=== PATIENT | female | born 1960 | race Two or more races ===

== ENCOUNTER 2018-10-07 09:19 | Emergency (ER) | payer SELFPAY ==
[~2018-10-07] VITALS: Ht 160 cm; Wt 42.9 kg
--- NOTE | 2018-10-07 09:52 | NUR ---
Patient discharged to home in stable condition. Written and verbal after care instructions given. Patient verbalizes understanding of instruction.
[2018-10-07 09:56] VITALS: BP 122/65
== END 2018-10-07 09:50 | disposition home or self-care (01) ==
LOC: ER 09:19
DX: Z00.00 Encounter for general adult medical examination without abnormal findings (principal); F10.10 Alcohol abuse, uncomplicated; F17.200 Nicotine dependence, unspecified, uncomplicated; Y90.9 Presence of alcohol in blood, level not specified; Z59.0 Homelessness
CPT/HCPCS: Z7502

== ENCOUNTER 2018-10-27 09:43 | Emergency (ER) | payer SELFPAY ==
[~2018-10-27] VITALS: Ht 152.4 cm; Wt 44.5 kg
[2018-10-27 09:43] VITALS: BP 164/85
[2018-10-27] MEDS ORDERED: IBUPROFEN 600 MG TABLET PO ONE ×2 (10:07→10:30)
== END 2018-10-27 10:31 | disposition home or self-care (01) ==
LOC: ER 09:43
DX: R60.0 Localized edema (principal); B35.3 Tinea pedis; F17.200 Nicotine dependence, unspecified, uncomplicated
CPT/HCPCS: 73600-TC

== ENCOUNTER 2019-07-08 11:54 | Inpatient (IN) | payer SELFPAY ==
[~2019-07-08] VITALS: Ht 162.6 cm; Wt 51.3 kg
--- NOTE | 2019-07-08 12:08 | NUR ---
BIIB RA C/O COUGH, CONGESTION, FEVER AND CHILLS, pt alert, awake, placed on monitor, pending er provider eval
--- NOTE | 2019-07-08 12:20 | NUR ---
LINE STARTED ON R FA G 18, BLOOD DRAWN FROM LINE AND SENT TO LAB
[2019-07-08] MEDS ORDERED: CEFTRIAXONE 1GM BAG (ER ONLY) 50 ML IV ONE ×2 (12:30→13:21)
[2019-07-08] MEDS ORDERED: AZITHROMYCIN 500 MG in IV D5W 250 ML IV ONE (12:30)
[2019-07-08] MEDS ORDERED: ALBUTEROL SULFATE INH 18 GM HFA.AER.AD IH PRN (12:30)
--- NOTE | 2019-07-08 12:30 | NUR ---
pt moved to room 6
[2019-07-08 12:53] LABS: BASOPHILS # (AUTO) 0.1 /CMM (0.0-0.2)
--- NOTE | 2019-07-08 12:55 | NUR ---
underwood swab sent to lab
[2019-07-08 12:56] LABS: BASOPHILS % (AUTO) 0.6 % (0.0-2.0); EOSINOPHILS % (AUTO) 0.4 % (0.0-6.0); HEMATOCRIT 43 % (33-45); HEMOGLOBIN 13.4 g/dL (11.5-14.8); LYMPHOCYTES % (AUTO) 4.7 % (20.0-44.0); MEAN CORPUSCULAR HGB CONC 32 g/dl (31.0-36.0); MEAN CORPUSCULAR VOLUME 103 fL (82-100); MONOCYTES % (AUTO) 0.2 % (2.0-12.0); NEUTROPHILS # (AUTO) 19.3 /CMM (1.8-8.9); NEUTROPHILS % (AUTO) 94.1 % (43.0-81.0); PLATELET COUNT (AUTO) 130 /CMM (150-450); RED BLOOD CELL COUNT(AUTO) 4.11 MIL/uL (4.0-5.2); WHITE BLOOD COUNT (AUTO) 20.5 K/uL (4.3-11.0)
--- NOTE | 2019-07-08 13:10 | NUR ---
CALLED [facility], PAGED MARYANNE
[2019-07-08 13:16] LABS: BILIRUBIN,DIRECT 2.6 mg/dL (0.0-0.2)
[2019-07-08 13:17] LABS: ALBUMIN 1.9 g/dL (3.4-5.0); TOTAL PROTEIN, SERUM 6.3 g/dL (6.4-8.2)
[2019-07-08 13:22] LABS: POTASSIUM 3.7 mmol/L (3.5-5.1)
[2019-07-08 13:23] LABS: CALCIUM, SERUM 7.5 mg/dL (8.5-10.1); CREATININE 2.9 mg/dL (0.6-1.3)
[2019-07-08] MEDS ORDERED: DEXTROSE 50%-WATER 50 ML DISP.SYRIN ONE (13:43)
--- NOTE | 2019-07-08 13:45 | NUR ---
pt hypoglycemic; given d50 and food tray at this time
--- NOTE | 2019-07-08 13:46 | NUR ---
CALLED NURSING SUP FOR BED
[2019-07-08] MEDS ORDERED: DEXTROSE 50%-WATER 50 ML DISP.SYRIN IV ONE (14:00)
--- NOTE | 2019-07-08 14:30 | NUR ---
report given to niko macdonald for juana
--- NOTE | 2019-07-08 15:00 | NUR ---
pt transported to 1st floor
--- NOTE | 2019-07-08 15:15 | NUR ---
SOLIDWORKS DESIGNER NOTES PATIENT RECEIVED AWAKE IN BED, NO RESPIRATORY DISTRESS AT THIS TIME, PATIENT COUGHING AT TIMES. PATIENT WITH NO C/O PAIN AT THIS TIME. SKIN WARM TO TOUCH, IV ACCESS SITES INTACT AND PATENT. SKIN ASSESSED AND TAKEN PHOTOS, NO SKIN BREAKDOWN. BELONGINGS ACCOUNTED FOR AND BELONGINGS LIST SIGNED. PATIENT'S NEEDS ATTENDED, BED ON LOWEST LOCKED POSITION, CALL LIGHT WITHIN REACH. ADMISSION ORDERS CARRIED OUT. SAFETY PRECAUTIONS IN PLACE. WILL CONTINUE TO MONITOR.
[2019-07-08] MEDS ORDERED: IV NS 0.9% 1,000 ML IV PRN ×2 (15:30→23:30)
[2019-07-08] MEDS ORDERED: HYDROCODONE/APAP 5/325MG 1 EACH TABLET PO PRN (16:00)
[2019-07-08] MEDS ORDERED: ACETAMINOPHEN 325 MG TABLET PO PRN (16:00)
[2019-07-08] MEDS ORDERED: MAG HYDROX/AL HYDROX/SIMETH 30 ML UDC PO PRN (16:00)
[2019-07-08] MEDS ORDERED: ZOLPIDEM TARTRATE 5 MG TABLET PO PRN (16:00)
[2019-07-08] MEDS ORDERED: Z GUARD REMEDY 2 OZ OINT TP PRN (16:00)
[2019-07-08] MEDS ORDERED: ONDANSETRON HCL/PF 4 MG/2 ML VIAL IVP PRN (16:00)
[2019-07-08] MEDS ORDERED: MAGNESIUM HYDROXIDE 30 ML UDC PO PRN (16:00)
[2019-07-08 17:02] LABS: ABG BASE EXCESS -23.7 mmol/L; ABG OXYGEN SATURATION 94.2 % (92.0-98.5); ABG PCO2 22.3 mmHg (35.0-45.0); ABG PH 7.024 (7.350-7.450); ABG PO2 106.3 mmHg (75.0-100.0); AaDO2 16.7 mmHg; COHb 0.4 % (0.5-1.5); MetHb 0.5 % (0.0-1.5); O2Hb 93.4 % (94.0-97.0); SITE, ABG Right Brachial; VENT MODE, BG ROOM AIR/ DISCONNECTED
[2019-07-08] MEDS ORDERED: SODIUM BICARBONATE SYR 50 MEQ/50 ML DISP.SYRIN IV ONE (17:30)
[2019-07-08] MEDS: BLOOD SUGAR DIAGNOSTIC 1 EACH STRIP IN SCH ×2 (17:31→22:26)
[2019-07-08 17:46] LABS: FERRITIN 597 ng/mL (8-388)
[2019-07-08] MEDS ORDERED: FEE PK DOSING 1 MIN EA MC ONE (17:52)
[2019-07-08] MEDS ORDERED: VANCOMYCIN 1 GM in IV D5W 250ml IV ONE (18:00)
--- NOTE | 2019-07-08 18:00 | NUR ---
HEALTH AND WELLNESS COORDINATOR NOTES TRANSFERRED PATIENT TO ICU, PATIENT WITH CHANGE OF CONDITION, PATIENT HAVING SOB, ON O2 4L VIA NASAL CANULA, PATIENT WITH NO C/O PAIN AT THIS TIME. ABG'S DONE AND RESULT GIVEN TO MD WITH NEW ORDERS, ORDERS CARRIED OUT, CHARGE NURSE IS AWARE AND INFORMED. REPORT GIVEN TO ELGIN FERNANDEZ.
[2019-07-08] MEDS ORDERED: SODIUM BICARBONATE SYR 50 MEQ/50 ML DISP.SYRIN ONE (18:08)
[2019-07-08 19:00] VITALS: BP 107/68
[2019-07-08 19:21] LABS: CALCIUM, SERUM 6.6 mg/dL (8.5-10.1); CREATININE 2.9 mg/dL (0.6-1.3); POTASSIUM 3.8 mmol/L (3.5-5.1)
[2019-07-08 20:00] VITALS: BP_SYST 127; BP_SYST 131; BP_DIAS 52; BP_DIAS 68
--- NOTE | 2019-07-08 20:19 | NUR ---
RN NOTE RECEIVED ALERT FOR CRITICAL LAB VALUE LACTIC ACID 17.4. PAGED DR. THORNTON.
[2019-07-08] MEDS: ENOXAPARIN SODIUM 30 MG/0.3 ML DISP.SYRIN SQ SCH (20:25)
--- NOTE | 2019-07-08 20:25 | NUR ---
RN NOTE DR. OCAMPO CALLED BACK. PT ALREADY HAD 1L BOLUS IV GIVEN BY PREVIOUS SHIFT. MD STATES TO GIVE ADDITIONAL 250ML OF NSS AND GIVE OTHER IV MEDICATIONS ORDERED. MD STATES TO RECHECK STAT LACTIC ACID LEVEL IN 3 HOURS. MD ALSO STATES HOLD LOVENOX DUE TO ELEVATED PT, INR AND APTT. ORDERS NOTED AND CARRIED OUT.
[2019-07-08] MEDS: Sodium Bicarbonate 150 MEQ in IV D5W 1,000 ML IV PRN (20:35)
[2019-07-08] MEDS: IV NS 0.9% 1,000 ML IV PRN (20:43)
[2019-07-08 21:00] VITALS: BP 116/78
[2019-07-08] MEDS ORDERED: IV NS 0.9% 250 ML IV PRN (21:00)
[2019-07-08 21:11] LABS: ABG BASE EXCESS -15.4 mmol/L; ABG OXYGEN SATURATION 93.3 % (92.0-98.5); ABG PCO2 25.7 mmHg (35.0-45.0); ABG PH 7.229 (7.350-7.450); ABG PO2 87.5 mmHg (75.0-100.0); AaDO2 31.5 mmHg; COHb 0.2 % (0.5-1.5); MetHb 0.6 % (0.0-1.5); O2Hb 92.6 % (94.0-97.0); SITE, ABG Left Brachial; VENT MODE, BG RA
--- NOTE | 2019-07-08 21:12 | NUR ---
ABG DONE. NOTIFIED EMBROIDERY SUPERVISOR WITH THE RESULT.
--- NOTE | 2019-07-08 21:15 | NUR ---
RN NOTE ABG RESULTED AND RELAYED TO DR. OCAMPO WITH NO NEW ORDERS.
[2019-07-08 22:00] VITALS: BP 91/58
[2019-07-08] MEDS: PIPERACILLIN /TAZOBACTAM 2.25 G in IV D5W 50 ML IV SCH (22:14)
[2019-07-08 23:00] VITALS: BP 101/31
--- NOTE | 2019-07-08 23:10 | NUR ---
RN NOTE RECEIVED ALERT FOR CRITICAL LAB VALUE LACTIC ACID 15.2. TRENDING DOWNWARD. NOTIFIED MERON MARTINEZ.
[2019-07-09] VITALS (34 sets, daily range): BP systolic 73–131; BP diastolic 33–65
--- NOTE | 2019-07-09 | NUR ---
RN NOTE PT NOTED WITH LIQUID BOWEL MOVEMENT. PT ALERT AND ORIENTED X 3 AND STRONGLY REFUSED TO BE CLEANED DESPITE EXPLANATION OF RISKS AND BENEFITS. PT EXCLAIMED "PLEASE! JUST LET ME SLEEP!" WILL OFFER TO BE CLEANED AGAIN.
[2019-07-09] MEDS ORDERED: LORAZEPAM INJ 2 MG/ML VIAL IV PRN (00:06)
[2019-07-09 01:06] LABS: CREATININE 1.8 mg/dL (0.6-1.3); TOTAL PROTEIN, SERUM 3.5 g/dL (6.4-8.2)
[2019-07-09 01:09] LABS: POTASSIUM 2.8 mmol/L (3.5-5.1)
[2019-07-09 01:12] LABS: ALBUMIN 0.9 g/dL (3.4-5.0); CALCIUM, SERUM 4.7 mg/dL (8.5-10.1)
[2019-07-09] MEDS: PIPERACILLIN /TAZOBACTAM 2.25 G in IV D5W 50 ML IV SCH ×3 (01:19→17:07)
[2019-07-09] MEDS: BLOOD SUGAR DIAGNOSTIC 1 EACH STRIP IN SCH ×6 (01:20→21:36)
--- NOTE | 2019-07-09 01:50 | NUR ---
RN NOTE RECEIVED ALERT FOR CRITICAL LAB VALUES: ALBUMIN 0.9, CALCIUM 4.7, POTASSIUM 2.8, AND TROPONIN 0.075. PAGED MERON OCAMPO NP.
[2019-07-09 02:31] LABS: APPEARANCE,URINE SL CLOUDY (CLEAR); BILIRUBIN,URINE MODERATE (NEGATIVE); BLOOD, URINE SMALL Ery/uL (NEGATIVE); COLOR,URINE DARK YELLO (YELLOW); KETONES,URINE NEGATIVE (NEGATIVE); LEUKOCYTE ESTERASE ,URINE NEGATIVE (NEGATIVE); NITRITE, URINE POSITIVE (NEGATIVE); PH,URINE 5.5 (5.0-8.0); PROTEIN,URINE TRACE mg/dl (NEGATIVE); UGLUCOSE NEGATIVE (NEGATIVE)
[2019-07-09 02:35] LABS: BACTERIA,URINE Moderate /HPF (None Seen); RBC,URINE 0-2 /HPF (0-2)
[2019-07-09 02:36] LABS: SQUAMOUS EPITHELIAL CELL,UR Few /HPF (None Seen)
--- NOTE | 2019-07-09 03:19 | NUR ---
RN NOTE MERON OCAMPO CHEMISTRY LECTURER CALLED BACK WITH ORDER TO ADMINISTER KCL 20MEQ IV. ORDER NOTED AND CARRIED OUT. NO NEW ORDERS GIVEN FOR ALBUMIN, CALCIUM AND TROPONIN LEVELS.
--- NOTE | 2019-07-09 03:24 | NUR ---
RN NOTE RECEIVED ALERT FOR CRITICAL LAB: PRELIMINARY BLOOD CULTURE SHOWS GRAM POSITIVE COCCI IN CHAINS. PT IS ALREADY ON VANCOMYCIN AND ZOSYN IV. DR. MARTINEZ MADE AWARE WITH NO NEW ORDERS.
[2019-07-09] MEDS: POTASSIUM CL. PREMIX PERIPHER. 50 ML IV SCH ×2 (03:29→04:30)
[2019-07-09] MEDS: Sodium Bicarbonate 150 MEQ in IV D5W 1,000 ML IV PRN ×3 (04:30→21:23)
[2019-07-09 04:44] LABS: BASOPHILS % (AUTO) 0.2 % (0.0-2.0); EOSINOPHILS % (AUTO) 0.2 % (0.0-6.0); HEMATOCRIT 34 % (33-45); HEMOGLOBIN 11.1 g/dL (11.5-14.8); LYMPHOCYTES # (AUTO) 0.7 /CMM (0.8-4.8); LYMPHOCYTES % (AUTO) 3.6 % (20.0-44.0); MEAN CORPUSCULAR HGB CONC 32 g/dl (31.0-36.0); MEAN CORPUSCULAR VOLUME 102 fL (82-100); MONOCYTES % (AUTO) 0.2 % (2.0-12.0); NEUTROPHILS # (AUTO) 17.9 /CMM (1.8-8.9); NEUTROPHILS % (AUTO) 95.8 % (43.0-81.0); PLATELET COUNT (AUTO) 86 /CMM (150-450); RED BLOOD CELL COUNT(AUTO) 3.36 MIL/uL (4.0-5.2); WHITE BLOOD COUNT (AUTO) 18.7 K/uL (4.3-11.0)
[2019-07-09 04:48] LABS: ALANINE AMINOTRANSFERASE 23 U/L (12-78); ALKALINE PHOSPHATASE 128 U/L (46-116); ASPARTATE AMINOTRANSFERASE 98 U/L (15-37); BILIRUBIN,TOTAL 2.7 mg/dL (0.2-1.0); CARBON DIOXIDE 17 mmol/L (21-32); CHLORIDE 103 mmol/L (98-107); CREATININE 1.9 mg/dL (0.6-1.3); GLUCOSE 115 mg/dL (74-106); PHOSPHORUS 6.3 mg/dL (2.5-4.9); POTASSIUM 3.3 mmol/L (3.5-5.1); SODIUM SERUM 140 mmol/L (136-145); TOTAL PROTEIN, SERUM 4.5 g/dL (6.4-8.2); UREA NITROGEN, BLOOD 58 mg/dL (7-18)
[2019-07-09 04:55] LABS: LDL 23 mg/dL (0-99); TRIGLYCERIDES 83 mg/dL (30-150)
[2019-07-09 04:58] LABS: ALBUMIN 1.2 g/dL (3.4-5.0); CALCIUM, SERUM 5.7 mg/dL (8.5-10.1)
--- NOTE | 2019-07-09 05:17 | NUR ---
RN NOTE RECEIVED ALERTS FOR CRITICAL LAB VALUES. CA 5.7, ALBUMIN 1.2, LACTIC ACID 13.8. ALL TRENDING IN EXPECTED DIRECTIONS. DR. OCAMPO NOTIFIED WITH NO NEW ORDERS.
[2019-07-09 05:29] LABS: BAND % (MANUAL) 25 % (0.0-5.0); LYMPHOCYTES % (MANUAL) 3 % (16-48); NEUTROPHILS % (MANUAL) 72 (42-76)
[2019-07-09 05:35] LABS: HDL CHOLESTEROL < 10 mg/dL (40-60)
--- NOTE | 2019-07-09 05:35 | NUR ---
RN NOTE DR. RASHEED CALLED UNIT AND WAS MADE AWARE OF LATEST ABG RESULT. ALSO NOTIFIED MD THAT PT IS ON 15L NON-REBREATHER AND SATURATING BETWEEN 88% AND 94% WITH SHORTNESS OF BREATH. DR. RASHEED ORDERED CHEST X-RAY AND REPEAT ABG IN AM. ORDER NOTED AND CARRIED OUT.
[2019-07-09 05:36] LABS: CHOLESTEROL < 50 mg/dL (<200)
--- NOTE | 2019-07-09 06:00 | NUR ---
RN NOTE NOTED TO HAVE PRODUCTIVE COUGH AND COARSE CRACKLES THROUGHOUT. IVF HELD PER . KAT MTZ RUNNING ORDERE.
--- NOTE | 2019-07-09 06:55 | NUR ---
RN NOTE PT NOTED TO BE REPEATEDLY REMOVING NON REBREATHER MASK WHICH CAUSES HER O2 SATURATION TO DROP TO 85-90% DESPITE PT REORIENTATION AND TEACHINGS. PAGED DR. OCAMPO FOR RESTRAINT ORDER.
--- NOTE | 2019-07-09 07:00 | NUR ---
PRODUCTION DIRECTOR OPENING A/O X1 , PATIENT IS AWAKE AND MOVING AROUND AND BED. PATIENT IS NOT COOPERATIVE WITH COMMANDS. ON 15L NON REBREATHER, ATTEMPTS TO TAKE OFF MASK. PATIENT ON EXTERNAL HEART MONITOR SR/ST . RAMIREZ PATENT AND INTACT. THANIA PICC LINE AND LEFTFORARM 20# NA BICARB 150 ML/HR ,PATIENT HAS BILATERAL RESTRAINTS PER PM SHIFT DOCTOR NOTIFIED . BED LOCKED AND LOWEST POSITION CALL LIGHT WITH IN REACH ALL SAFETY MEASURE IMPLEMENTED PER HOSPITAL POLICY
[2019-07-09] MEDS ORDERED: POTASSIUM CHLORIDE 10 MEQ TABLET.SA PO ONE (08:00)
--- NOTE | 2019-07-09 08:00 | NUR ---
DESIGN STUDIO CONSULTANT - DR. LARA SAW PATIENT
[2019-07-09 08:41] LABS: ABG BASE EXCESS -13.5 mmol/L; ABG OXYGEN SATURATION 83.5 % (92.0-98.5); ABG PCO2 43.3 mmHg (35.0-45.0); ABG PH 7.153 (7.350-7.450); ABG PO2 65.6 mmHg (75.0-100.0); AaDO2 459.3 mmHg; COHb 0.6 % (0.5-1.5); MetHb 0.5 % (0.0-1.5); O2Hb 82.6 % (94.0-97.0); SITE, ABG Left Radial; VENT MODE, BG NRB
[2019-07-09] MEDS ORDERED: HYDROXYCHLOROQUINE 200 MG TABLET PO SCH ×2 (09:00)
[2019-07-09] MEDS: PROPOFOL 100 ML IV PRN (10:00)
--- NOTE | 2019-07-09 10:11 | NUR ---
RT NOTE PT INTUBATED PER MD ORDER. 7.0 ETT 22 CM AT LIP. AC 16 450 +5 100%. ETT SECURE. CUFF INFLATED. ALARMS SET PER PROTOCOL AND AUDIBLE. VENT PLUGGED IN TO RED OUTLET. AMBU BAG AT BED SIDE. NO DI9
--- NOTE | 2019-07-09 10:13 | NUR ---
RT NOTE PT INTUBATED PER MD ORDER. 7.0 ETT 22 CM @ LIP. AC 16 450 100% +5. CUFF INFLATED. ETT SECURE. ALARMS SET PER PROTOCOL AND AUDIBLE. VENT PLUGGED IN TO RED OUTLET. AMBU BAG AT BED SIDE. NO DISTRESS NOTED AT MOMENT. Addendum: 07/09/19 at 1015 by ATTILA CLARK RT Amended: Links added.
[2019-07-09] MEDS: IV NS 0.9% 1,000 ML IV PRN (10:52)
[2019-07-09] MEDS ORDERED: POTASSIUM CHLORIDE 20 MEQ POWDER PACKET PO ONE (11:00)
[2019-07-09 12:05] LABS: ABG BASE EXCESS -14.4 mmol/L; ABG OXYGEN SATURATION 92.8 % (92.0-98.5); ABG PCO2 36.1 mmHg (35.0-45.0); ABG PH 7.177 (7.350-7.450); ABG PO2 84.3 mmHg (75.0-100.0); AaDO2 592.6 mmHg; COHb 0.3 % (0.5-1.5); MetHb 0.5 % (0.0-1.5); O2Hb 92.1 % (94.0-97.0); SITE, ABG Right Radial; VENT MODE, BG AC 16 450 100% +5
[2019-07-09] MEDS: VANCOMYCIN 500 MG in IV D5W 100 ML IV SCH (12:13)
[2019-07-09] MEDS ORDERED: ETOMIDATE 2 MG/ML VIAL IV ONE (17:12)
--- NOTE | 2019-07-09 18:00 | NUR ---
POKER PROP PLAYER - EMESIS WHILE CHANGING AND BED BATH . PATIENT STARTED EMESIS ABOUT 20 ML DARK BROWN LIQUID. SPECIMEN SENT TO LAB CHARGE NURSE NOTIFIED .
[2019-07-09] MEDS: AZITHROMYCIN 250 MG TABLET PO SCH (18:09)
[2019-07-09] MEDS: HYDROXYCHLOROQUINE 200 MG TABLET PO SCH (18:50)
--- NOTE | 2019-07-09 19:00 | NUR ---
TITLE COORDINATOR PATIENT IN STABLE CONDITION AT THIS TIME, NO SOB, NO ACUTE DISTRESS NOTED AT THIS TIME. BED LOCKED AT LOWEST POSITION CALL LIGHT WITH IN REACH ALL SAFETY MEASURE IMPLEMENTED PER HOSPITAL POLICY. WILL ENDORSE TO ON COMING SHIFT Addendum: 07/09/19 at 1925 by YOSI HOPE RN TITLE COORDINATOR PATIENT IN STABLE CONDITION AT THIS TIME, NO SOB, NO ACUTE DISTRESS NOTED AT THIS TIME. BED LOCKED AT LOWEST POSITION CALL LIGHT WITH IN REACH ALL SAFETY MEASURE IMPLEMENTED PER HOSPITAL POLICY. WILL ENDORSE TO ON COMING SHIFT PATIENT TURN Q2H
[2019-07-09] MEDS ORDERED: VANCOMYCIN 500 MG in IV D5W 100ml IV SCH (20:00)
--- NOTE | 2019-07-09 20:49 | NUR ---
CLARIFYING ORDER PT FOUND ON R28 VT500 100% +5, PT CHARTING REFLECTS R 16 VT 450 100% +5, ELGIN DELUCA MADE AWARE. MD RASHEED CLARIFIED ORDERS, AND ORDERED R 28 VT 500 100% +5, DOING STAT ABG ON CURRENT SETTINGS. PT CURRENT STABLE SCANT AMOUNT OF SECRETIONS SUCTIONED THIN WHITE...
[2019-07-09] MEDS: ENOXAPARIN SODIUM 30 MG/0.3 ML DISP.SYRIN SQ SCH (21:00)
[2019-07-09] MEDS: NOREPINEPHRINE 8 MG in IV NS 0.9% 242 ML IV PRN (21:10)
[2019-07-09 21:31] LABS: ABG BASE EXCESS -10.8 mmol/L; ABG OXYGEN SATURATION 95.9 % (92.0-98.5); ABG PCO2 32.1 mmHg (35.0-45.0); ABG PH 7.282 (7.350-7.450); ABG PO2 100.6 mmHg (75.0-100.0); AaDO2 580.3 mmHg; COHb 0.3 % (0.5-1.5); MetHb 0.5 % (0.0-1.5); O2Hb 95.1 % (94.0-97.0); SITE, ABG Right Radial; VENT MODE, BG AC 28 500 100% +5
[2019-07-10] VITALS (96 sets, daily range): BP systolic 66–134; BP diastolic 29–92
[2019-07-10] MEDS: BLOOD SUGAR DIAGNOSTIC 1 EACH STRIP IN SCH ×6 (01:20→20:46)
[2019-07-10] MEDS: PIPERACILLIN /TAZOBACTAM 2.25 G in IV D5W 50 ML IV SCH ×2 (01:20→09:09)
[2019-07-10 05:17] LABS: CREATININE 1.9 mg/dL (0.6-1.3); POTASSIUM 3.7 mmol/L (3.5-5.1)
[2019-07-10 05:19] LABS: BASOPHILS # (AUTO) 0.1 /CMM (0.0-0.2); BASOPHILS % (AUTO) 0.4 % (0.0-2.0); EOSINOPHILS % (AUTO) 0.2 % (0.0-6.0); HEMATOCRIT 28 % (33-45); HEMOGLOBIN 9.2 g/dL (11.5-14.8); LYMPHOCYTES # (AUTO) 1.1 /CMM (0.8-4.8); LYMPHOCYTES % (AUTO) 2.8 % (20.0-44.0); MEAN CORPUSCULAR HGB CONC 33 g/dl (31.0-36.0); MEAN CORPUSCULAR VOLUME 101 fL (82-100); MONOCYTES # (AUTO) 0.1 /CMM (0.1-1.30); MONOCYTES % (AUTO) 0.3 % (2.0-12.0); NEUTROPHILS # (AUTO) 36.6 /CMM (1.8-8.9); NEUTROPHILS % (AUTO) 96.3 % (43.0-81.0); RED BLOOD CELL COUNT(AUTO) 2.83 MIL/uL (4.0-5.2)
[2019-07-10 05:27] LABS: CALCIUM, SERUM 5.1 mg/dL (8.5-10.1)
[2019-07-10] MEDS: IV NS 0.9% 1,000 ML IV PRN (05:36)
[2019-07-10] MEDS: Sodium Bicarbonate 150 MEQ in IV D5W 1,000 ML IV PRN (05:36)
[2019-07-10 05:41] LABS: PLATELET COUNT (AUTO) 50 /CMM (150-450)
[2019-07-10 05:46] LABS: BAND % (MANUAL) 27 % (0.0-5.0); LYMPHOCYTES % (MANUAL) 1 % (16-48); NEUTROPHILS % (MANUAL) 69 (42-76)
[2019-07-10 05:47] LABS: EOSINOPHILS % (MANUAL) 1 % (0-4); METAMYELOCYTES % 2 % (0-0)
[2019-07-10 06:16] LABS: FERRITIN 7165 ng/mL (8-388)
[2019-07-10] MEDS: VANCOMYCIN 500 MG in IV D5W 100 ML IV SCH (07:02)
[2019-07-10] MEDS: HYDROXYCHLOROQUINE 200 MG TABLET PO SCH (09:09)
[2019-07-10 11:14] LABS: ABG BASE EXCESS -6.5 mmol/L; ABG OXYGEN SATURATION 96.8 % (92.0-98.5); ABG PCO2 36.1 mmHg (35.0-45.0); ABG PH 7.333 (7.350-7.450); AaDO2 567.9 mmHg; COHb 0.1 % (0.5-1.5); MetHb 0.6 % (0.0-1.5); O2Hb 96.1 % (94.0-97.0); PEEP,BG 5 cm H2O; SITE, ABG Right Radial; VT, ABG 500 mL
[2019-07-10] MEDS: NOREPINEPHRINE 8 MG in IV NS 0.9% 242 ML IV PRN ×3 (12:59→23:12)
[2019-07-10] MEDS: IV D5/ 0.9% NACL 1,000 ML IV PRN ×2 (13:08→23:13)
[2019-07-10] MEDS: PROPOFOL 100 ML IV PRN (15:32)
[2019-07-10 16:46] LABS: OCCULT BLOOD STOOL POSITIVE (NEGATIVE)
[2019-07-10] MEDS ORDERED: HYDROXYCHLOROQUINE 200 MG TABLET PO SCH (17:00)
[2019-07-10] MEDS ORDERED: MEROPENEM 0.5 G in IV NS 0.9% 100 ML IV SCH (17:00)
[2019-07-10] MEDS ORDERED: DOSE PER PHARMACY MICAFUNGIN 1 EA XX PRN (17:00)
[2019-07-10] MEDS: AZITHROMYCIN 250 MG TABLET PO SCH (17:54)
[2019-07-10] MEDS ORDERED: MEROPENEM 500 MG in IV NS 0.9% 100 ML IV SCH (18:00)
[2019-07-10] MEDS ORDERED: MICAFUNGIN SODIUM 100 MG in IV NS 0.9% 100 ML IV SCH (18:00)
[2019-07-10] MEDS ORDERED: MEROPENEM 500 MG in IV NS 0.9% 50 ML IV ONE (18:30)
--- NOTE | 2019-07-10 19:10 | NUR ---
RN NOTES PATIENT RESTING, WITH TRACH/ETT 7.0/, AC 28 TV 500 FIO2 100% PEEP 5. VENT CHANGED PEEP TO [address] RASHEED[address]NOT IN ANY DISTRESS. SINUS RHYTHM. SEDATION VACATION DONE EARLY IN THE MORNING. DIPROVAN INCREASED FROM 20 ML TO 35 ML/HR. SEDATED. LEVOPHED DRIP ADJUSTED PER PROTOCOL. INITIALLY AT 0.2 MCG, NOW AT 0.7 MCG. IVF RUNNING AT 100 ML/HR. THANIA PICC LINE CDI DRESSING. LFA 20G. FLUSHES WELL. SITE CLEAR. ON LIS, WITH 400 ML OUTPUT OF BLACK FLUID. HAD BLACK STOOL EARLIER,SPECIMEN COLLECTED AND SENT TO LAB FOR OBS. SODIUM BICARB DISCONTINUED. NPO. TURNED AND REPOSITIONED Q 2HOURS. RESTRAINT RELEASED AND CIRCULATION CHECKED EVERY 2 HOURS. PM CARE DONE EARLIER. ISOLATION PRECAUTION OBSERVED DURING THE WHOLE SHIFT. ACCUCHECK DONE. RESULTS RELAYED TO DR. LARA, AWARE, NO SLIDING SCALE ORDERED. URINE OUTPUT 45 ML. ALL NEEDS MET AT THIS TIME. NO OTHER SIGNIFICANT CHANGE. REPORT GIVEN TO YOSI EISENBERG FOR ARTURO.
--- NOTE | 2019-07-10 19:20 | NUR ---
RN OPENING NOTES: PATIENT IN BED, INTUBATED, TOLERATING CURRENT VENT SETTINGS. NO RESPIRATORY DISTRESS. NO S/S OF PAIN. PATIENT HAS THANIA PICC LINE, LEFT FA G20; ALL SITES C/D/I. FLUSHING WELL. ON LEVO; WILL TITRATE PER PROTOCOL. ON RAMIREZ INTACT AND PATENT. ON BILATERAL SOFT WRIST RESTRAINTS. BED LOCKED, LOW POSITION, SIDE RAILS X 2 UP. CALL LIGHT WITHIN REACH. WILL CONT. TO MONITOR.
[2019-07-11] VITALS (45 sets, daily range): BP systolic 23–122; BP diastolic 14–72
[2019-07-11] MEDS: VANCOMYCIN 500 MG in IV D5W 100 ML IV SCH (00:02)
[2019-07-11] MEDS: BLOOD SUGAR DIAGNOSTIC 1 EACH STRIP IN SCH ×3 (01:12→09:10)
--- NOTE | 2019-07-11 01:12 | NUR ---
RN NOTE: CHECKED PATIENT'S BS = 62. PAGED MERON OCAMPO NP. AWAITING FOR RESPONSE. Addendum: 07/11/19 at 0127 by ZACH REYES RN CHARGE NURSE AWARE Addendum: 07/11/19 at 0200 by ZACH REYES RN 0149: SPOKE WITH MERON OCAMPO NP. MADE AWARE OF PATIENT'S BS 62. PATIENT ON D5 NS AT 100 MLS/HR. PER SISI CHANCE TO GIVE D50. WILL CONT. TO MONITOR.
[2019-07-11] MEDS: DEXTROSE 50%-WATER 50 ML DISP.SYRIN IV PRN ×2 (01:50→09:09)
[2019-07-11] MEDS: PROPOFOL 100 ML IV PRN (03:36)
[2019-07-11] MEDS: NOREPINEPHRINE 8 MG in IV NS 0.9% 242 ML IV PRN (04:31)
[2019-07-11 04:52] LABS: BASOPHILS # (AUTO) 0.2 /CMM (0.0-0.2); BASOPHILS % (AUTO) 0.5 % (0.0-2.0); EOSINOPHILS % (AUTO) 1.1 % (0.0-6.0); HEMATOCRIT 25 % (33-45); HEMOGLOBIN 7.8 g/dL (11.5-14.8); LYMPHOCYTES # (AUTO) 2.2 /CMM (0.8-4.8); LYMPHOCYTES % (AUTO) 5.2 % (20.0-44.0); MEAN CORPUSCULAR HGB CONC 31 g/dl (31.0-36.0); MEAN CORPUSCULAR VOLUME 108 fL (82-100); MONOCYTES # (AUTO) 0.5 /CMM (0.1-1.30); MONOCYTES % (AUTO) 1.1 % (2.0-12.0); NEUTROPHILS # (AUTO) 39.8 /CMM (1.8-8.9); NEUTROPHILS % (AUTO) 92.1 % (43.0-81.0); RED BLOOD CELL COUNT(AUTO) 2.34 MIL/uL (4.0-5.2)
[2019-07-11 04:53] LABS: CREATININE 3.1 mg/dL (0.6-1.3); POTASSIUM 5.8 mmol/L (3.5-5.1)
[2019-07-11] MEDS ORDERED: MEROPENEM 500 MG in IV NS 0.9% 100 ML IV SCH (05:00)
[2019-07-11 05:22] LABS: CALCIUM, SERUM 4.7 mg/dL (8.5-10.1)
[2019-07-11 06:00] LABS: PLATELET COUNT (AUTO) 40 /CMM (150-450); WHITE BLOOD COUNT (AUTO) 43.2 K/uL (4.3-11.0)
[2019-07-11 06:06] LABS: BAND % (MANUAL) 33 % (0.0-5.0); LYMPHOCYTES % (MANUAL) 7 % (16-48); MONOCYTES % (MANUAL) 1 % (0-11.0); NEUTROPHILS % (MANUAL) 59 (42-76)
--- NOTE | 2019-07-11 06:22 | NUR ---
RN NOTE: AT 0620: RECEIVED CRITICAL LAB RESULTS; CALCIUM 4.7, WBC 43.2, PLATELET 40. MERON OCAMPO MADE AWARE AND ORDERED TO ADD ALBUMIN TO TODAY'S BLOOD WORK. AT 0623: CALLED IN TO LAB AND SPOKE WITH MERON.
--- NOTE | 2019-07-11 07:30 | NUR ---
rn notes received patient in bed. sedated with Diprivan at 40mcg/kg/min. orally intubated with tube 7.0 at 25cm on the lip. vent setting s as follows ac 28 vt at 500, fi02 80%, peep 10. oxygen saturation is not registering on the monitor despite change of site of the oximeter and leads replaced. no labor in breathing noted at this time. patient sinus rhythm/sinus tach on the monitor. gt in place connected to intermittent suctioning, drain noted to be black in color. picc line on the kate in place and flushing well. with ongoing ivf of d5ns at 100cc/hr and levophed at 0.8mcg/kg/min- adjusted accordingly due to blood pressure not within the parameter. upper arm noted edematous: non pitting with weeping. safety measures observed and maintained. call light within reach. will continue to monitor patient accordingly
--- NOTE | 2019-07-11 07:32 | NUR ---
RN CLOSING NOTE: PATIENT IN NO ACUTE DISTRESS DURING SHIFT. NO S/S OF PAIN. KEPT CLEAN AND COMFORTABLE. TURNED AND REPOSITIONED Q2H. UNABLE TO OBTAIN SPO2 AT THIS TIME. PATIENT REMAINS INTUBATED, TOLERATING CURRENT SETTINGS WELL, RESPIRATIONS EVEN AND UNLABORED. NO RESPIRATORY DISTRESS. ENDORSED CRITICAL LAB RESULTS TO AM SHIFT NURSE AND FOR CONTINUITY OF CARE.
--- NOTE | 2019-07-11 07:50 | NUR ---
RT PATIENT REC'D ORALLY INTUBATED ON [facility] VENT WITH ORDERED SETTINGS. VENT ALARMS CHECKED + AUDIBLE. ETT SECURE AND PATENT. AMBU BAG AT [facility]. PATIENT SEDATED AND IN CRITICAL CONDITION. CONT CURRENT PLAN OF RESP CARE. Addendum: 07/11/19 at 1451 by YADI GONSALVES RT Amended: Links added.
[2019-07-11] MEDS ORDERED: NOREPINEPHRINE 32 MG in IV NS 0.9% 218 ML IV PRN (08:30)
--- NOTE | 2019-07-11 09:00 | NUR ---
rn notes blood sugar check and noted as follow left hand 53, right hand 72. rechecked again on the righ hand and result came at 29. [id number] administered prn.
[2019-07-11] MEDS ORDERED: PHENYLEPHRINE 100 MG in IV NS 0.9% 240 ML IV PRN (10:30)
--- NOTE | 2019-07-11 10:30 | NUR ---
rn notes blood pressure hard to be determine despite change of sites. was obtained at the left upper arm and was at 34/17mmgh. Charge nurse informed and so is Dr. Wiley who is at the unit at this time. Dr. Wiley with orders for bolus 500ml of ns, lower peep to 5 from 10 and to start norsynephrine per protocol. orders noted and carried out
--- NOTE | 2019-07-11 11:20 | NUR ---
rn notes once again blood pressure is undeterminable. charge nurse was informed to confirmed. pulse check done with the use of Doppler. patient pulseless, code blue initiated. (please see code blue form)
--- NOTE | 2019-07-11 11:34 | NUR ---
rn notes patient pronounced by Dr. Wiley at this time i was on the phone talking to Murtaza Keo (father) made aware of the situation who verbalized understanding
--- NOTE | 2019-07-11 11:34 | NUR ---
RT CODE BLUE WAS INITIATED, CPR BEGAN. DR RASHEED AT BEDSIDE RUNNING CODE BLUE. PATIENT WAS DECLARED PULSELESS WITH NO RESPIRATIONS AT 1134.
--- NOTE | 2019-07-11 12:09 | NUR ---
rn notes spoke to victorino from [employer], per Victorino patient is not a candidate to be a donor. spoke to noble from the die maker apprentice's office, per the later patient will be a die maker apprentice's case with #[phone].
--- NOTE | 2019-07-11 12:10 | NUR ---
ICU/RN: PT WILL BE CORONERS CASE. CALLED LAB SPOKE TO AMY TO SAVE ALL BLOOD SPECIMENS FOR PT.
[2019-07-11] MEDS ORDERED: SODIUM BICARBONATE SYR 50 MEQ/50 ML DISP.SYRIN IV ONE (15:36)
[2019-07-11] MEDS ORDERED: EPINEPHRINE (1:10,000) SYRINGE 1 MG/10 ML DISP.SYRIN IVP ONE (15:36)
[2019-07-11] MEDS ORDERED: ATROPINE SULFATE 1 MG/10 ML DISP.SYRIN IV ONE (15:36)
== END 2019-07-11 11:34 | disposition expired | DRG 871 ==
LOC: ER 11:54 → TELE1 14:05 → ICU 17:46
PROVIDERS: ADMIT Nurse Practitioner Acute Care; ATTEND Family Medicine
PROC: 02HV33Z Insertion of Infusion Device into Superior Vena Cava, Percutaneous Approach (ICD-10-PCS; principal; 2019-07-08)
PROC: B548ZZA Ultrasonography of Superior Vena Cava, Guidance (ICD-10-PCS; principal; 2019-07-08)
PROC: 5A1945Z Respiratory Ventilation, 24-96 Consecutive Hours (ICD-10-PCS; 2019-07-09)
PROC: 0BH17EZ Insertion of Endotracheal Airway into Trachea, Via Natural or Artificial Opening (ICD-10-PCS; 2019-07-09)
PROC: 5A2204Z Restoration of Cardiac Rhythm, Single (ICD-10-PCS; 2019-07-11)
DX: A41.9 Sepsis, unspecified organism (principal); E43 Unspecified severe protein-calorie malnutrition; I21.A1 Myocardial infarction type 2; J15.6 Pneumonia due to other Gram-negative bacteria; J96.01 Acute respiratory failure with hypoxia; J96.02 Acute respiratory failure with hypercapnia; N17.0 Acute kidney failure with tubular necrosis; R65.21 Severe sepsis with septic shock; J13 Pneumonia due to Streptococcus pneumoniae; J15.9 Unspecified bacterial pneumonia; J12.9 Viral pneumonia, unspecified; D68.9 Coagulation defect, unspecified; Z68.1 Body mass index [BMI] 19.9 or less, adult; E87.2 Acidosis; R64 Cachexia; I31.3 Pericardial effusion (noninflammatory); J90 Pleural effusion, not elsewhere classified; D69.6 Thrombocytopenia, unspecified; I25.10 Atherosclerotic heart disease of native coronary artery without angina pectoris; K74.60 Unspecified cirrhosis of liver; Z59.0 Homelessness; E83.51 Hypocalcemia; I48.91 Unspecified atrial fibrillation; I44.7 Left bundle-branch block, unspecified; E16.2 Hypoglycemia, unspecified; F10.10 Alcohol abuse, uncomplicated; Y90.9 Presence of alcohol in blood, level not specified; K80.20 Calculus of gallbladder without cholecystitis without obstruction; K31.89 Other diseases of stomach and duodenum; I12.9 Hypertensive chronic kidney disease with stage 1 through stage 4 chronic kidney disease, or unspecified chronic kidney disease; N18.9 Chronic kidney disease, unspecified; Z72.0 Tobacco use; I45.81 Long QT syndrome
CPT/HCPCS: 31720; 36415; 36600; 71045-TC; 71250-TC; 74018; 76700-TC; 80048-TC; 80053-TC; 80061-TC; 80076-TC; 80202-TC; 80305; 81000-TC; 82040-TC; 82272-TC; 82533; 82728-TC; 82803-TC; 82962-TC; 83605-TC; 83615-TC; 83735-TC; 84100-TC; 84484-TC; 85025-TC; 85378-TC; 85730-TC; 86140-TC; 86480; 86803; 87040-TC; 87081-TC; 87086-TC; 87186-TC; 87806; 93307-TC; 94002-TC; 94003-TC; A4216; C1751; G0378; J0171; J0456; J0461; J0696; J2060; J2185; J2248; J2370; J2543; J3370; J3480; J3490; J7030; J7042; J7050; J7060; J7070